=== PATIENT | female | born 1965 | race Two or more races ===

== ENCOUNTER 2022-11-07 09:44 | Emergency (ER) | payer BC, OTHER ==
[~2022-11-07] VITALS: Ht 154.9 cm; Wt 86.5 kg
[2022-11-07] MEDS ORDERED: KETOROLAC TROMETH 30 MG/ML 1ML VIAL IV ONE (10:15)
[2022-11-07 10:16] VITALS: BP 129/79; PULSE 66; RESP 24; TEMP 97.9; O2SAT 100
[2022-11-07] MEDS ORDERED: OXYCODONE W/ ACETAMINOPHEN 5/325MG TABLET PO ONE (10:45)
== END 2022-11-07 11:08 | disposition home or self-care (01) ==
LOC: ER 09:44 → EDBD 09:44 → ER 11:07
DX: S29.012A Strain of muscle and tendon of back wall of thorax, initial encounter (principal); S01.01XA Laceration without foreign body of scalp, initial encounter; F41.9 Anxiety disorder, unspecified; Z90.49 Acquired absence of other specified parts of digestive tract; W01.0XXA Fall on same level from slipping, tripping and stumbling without subsequent striking against object, initial encounter; Y93.89 Activity, other specified; Y92.89 Other specified places as the place of occurrence of the external cause; Y99.8 Other external cause status
CPT/HCPCS: 12001; 70450; 72070; 96374; 99285; J1885

== ENCOUNTER 2022-11-14 14:36 | Emergency (ER) | payer BC, OTHER ==
[~2022-11-14] VITALS: Ht 154.9 cm; Wt 90.5 kg
[2022-11-14 15:17] VITALS: BP 139/73; PULSE 70; RESP 18; TEMP 98.4; O2SAT 98
== END 2022-11-14 15:23 | disposition home or self-care (01) ==
LOC: ER 14:36
DX: S01.01XD Laceration without foreign body of scalp, subsequent encounter (principal); X58.XXXD Exposure to other specified factors, subsequent encounter

== ENCOUNTER 2024-02-08 04:18 | Emergency (ER) | payer BC, OTHER ==
[~2024-02-08] VITALS: Ht 2.5 cm; Wt 87.8 kg
--- NOTE | 2024-02-08 05:09 | ED.PDOC ---
History of Present Illness HPI Comments 59 y/o F presents with c/o left-ear pain for 2 days. Patient reports unprovoked onset of pain in her left that has been persisting for the past couple of days. Patient comments on no relief with [id number] ear drops use. Patient comments on no recent stress, injuries, sick contact, travel, spoiled food intake, or substance use/exposure. Patient endorses on no further relevant or pertinent past medical, surgical, or family Hx. Patient denies having any headache, dizziness, lightheadedness, fever, chills, or other associated symptoms or modifiers at this time. Chief Complaint: Earache Time Seen by MD: 04:45 Primary Care Provider: [facility] Reviewed Notes: Nurses Notes, Medications, Allergies Allergies: Coded Allergies: NO KNOWN ALLERGIES (Unverified , 11/07/22) Information Source: Patient Mode of Arrival: Ambulatory Severity: Moderate Timing: Days Duration: Since onset Prehospital treatment: Other (see HPI) Past Medical History PAST MEDICAL HISTORY: Anxiety Surgical History: Cholecystectomy LOAN UNDERWRITER History: No Pertinent LOAN UNDERWRITER History Family History Family History: Reviewed,noncontributory to illness Social History Smoker: Non-Smoker Alcohol: Occasionally Drugs: Denies Drug Use Lives In: Home Constitutional: denies: chills, diaphoresis, fatigue, fever, malaise, sweats, weakness, others EENTM: reports: ear pain (left ear); denies: blurred vision, double vision, ear bleeding, ear discharge, ear drainage, ear ringing, eye pain, eye redness, hearing loss, mouth pain, mouth swelling, nasal discharge, nose bleeding, nose congestion, nose pain, photophobia, tearing, throat pain, throat swelling, voice changes, others Respiratory: denies: cough, hemoptysis, orthopnea, SOB at rest, shortness of breath, SOB with excertion, stridor, wheezing, others Cardiovascular: denies: chest pain, dizzy spells, diaphoresis, Dyspnea on exertion, edema, irregular heart beat, left arm pain, lightheadedness, palpitations, PND, syncope, others Gastrointestinal: denies: abdomen distended, abdominal pain, blood streaked bowels, constipated, diarrhea, dysphagia, difficulty swallowing, hematemesis, melena, nausea, poor appetite, poor fluid intake, rectal bleeding, rectal pain, vomiting, others Genitourinary: denies: abnormal vagina bleeding, burning, dyspareunia, dysuria, flank pain, frequency, hematuria, incontinence, pain, , vagina discharge, urgency, others Neurological: denies: dizziness, fainting, headache, left sided numbness, left sided weakness, numbness, paresthesia, pre-existing deficit, right sided numbness, right sided weakness, seizure, speech problems, tingling, tremors, weakness, others Musculoskeletal: denies: back pain, gout, joint pain, joint swelling, muscle pain, muscle stiffness, neck pain, others Integumetry: denies: bruises, change in color, change in hair/nails, dryness, laceration, lesions, lumps, rash, wounds, others Allergic/Immunocompromised: denies: Difficulty Healing, Frequent Infections, Hives, Itching, others Hematologic/Lymphatic: denies: anemia, blood clots, easy bleeding, easy bruising, swollen glands, others Endocrine: denies: excessive hunger, excessive sweating, excessive thirst, excessive urination, flushing, intolerance to cold, intolerance to heat, unexplained weight gain, unexplained weight loss, others Psychiatric: denies: anxiety, bipolar disorder, depression, hopeless, panic disorder, schizophrenia, sleepless, suicidal, others All Other Systems: Reviewed and Negative Physical Exam General Appearance: Moderate Distress HEENT: TM Abnormal (L) Neck: Full Range of Motion, Non-Tender, Normal, Normal Inspection Respiratory: Chest Non-Tender, Lungs Clear, No Accessory Muscle Use, No Respiratory Distress, Normal Breath Sounds Cardiovascular: No Edema, No JVD, No Murmur, No Gallop, Normal Peripheral Pulses, Regular Rate/Rhythm Breast Exam: Deferred Gastrointestinal: No Organomegaly, Non Tender, No Pulsatile Mass, Normal Bowel Sounds, Soft Genitalia: Deferred Pelvic: Deferred Rectal: Deferred Extremities: No calf tenderness, Normal capillary refill, Normal inspection, Normal range of motion, Non-tender, No pedal edema Musculoskeletal : Apperance: Normal Neurologic: Alert, cart attendant II-XII nml as Tested, No Motor Deficits, Normal Affect, Normal Mood, No Sensory Deficits Cerebellar Function: Normal Reflexes: Normal Skin: Dry, Normal Color, Warm Peripheral Pulses: 3+ Radial (R), 3+ Radial (L) Lymphatic: No Adenopathy Was a procedure done? Was a procedure done?: No Differential Dx Considerations may include: viral syndrome, otitis media, otitis externa, cerumen impaction X-Ray, Labs, Meds, VS Vital Signs Date Time Temp Pulse Resp B/P (MAP) Pulse Ox O2 Delivery O2 Flow Rate FiO2 02/08/24 04:43 98.5 80 16 145/98 (114) 95 Patient alert. Complaining of left ear pain. Vitals stable. Answering all questions. On examination mild redness in the left compared to the right ear. Reviewed her history. Blood pressure slightly elevated. Was given prescription of amoxicillin antibiotic. Explained to the patient about treatment plan. Was told to follow up with her primary care physician. Was told to come back if there is any problem. Time of 1ST Reevaluation: 05:15 Reevaluation 1ST: Improved Patient Education/Counseling: Diagnosis, Treatment Family Education/Counseling: Diagnosis, Treatment Departure 1 Departure Time of Disposition: 05:12 Impression: Primary Impression: Otitis media Qualified Codes: H66.90 - Otitis media, unspecified, unspecified ear Disposition: HOME / SELF CARE / HOMELESS Condition: Good e-Prescriptions Amoxicillin Trihydrate (Amoxicillin) 500 Mg Cap 1 CAP PO TID for 5 Days, #15 CAP Prov: GREGG GIRALDO MD 02/08/24 Discharged With: Self Critical Care Note Critical Care Time?: No Stability Stability form required: No Heart Score Heart Score: Heart Score Response (Comments) Value History N/A 0 EKG N/A 0 Age N/A 0 Risk Factors N/A 0 Troponin N/A 0 Total 0 I personally scribed for GREGG GIRALDO MD ([email or web address]) on 02/08/24 at 05:09. Electronically submitted by Juan Miguel Silveira ([email or web address]). GREGG GIRALDO MD Feb 08, 2024 05:09
[2024-02-08] MEDS ORDERED: AMOX500C2 PO (05:13)
[2024-02-08 05:20] VITALS: BP 150/74; PULSE 81; RESP 18; TEMP 98; O2SAT 97
== END 2024-02-08 05:38 | disposition home or self-care (01) ==
LOC: ER 04:18
DX: H66.92 Otitis media, unspecified, left ear (principal); F41.9 Anxiety disorder, unspecified; Z90.49 Acquired absence of other specified parts of digestive tract